=== PATIENT | female | born 1930 | race Caucasian/White ===

== ENCOUNTER 2017-08-31 12:42 | Observation (INO) | payer MEDICARE ==
[~2017-08-31] VITALS: Ht 162.6 cm; Wt 50.0 kg
[2017-08-31 12:43] VITALS: BP 152/71; PULSE 98; RESP 14; TEMP 97.8; O2SAT 97
[2017-08-31 12:53] VITALS: BP 178/80; PULSE 92; RESP 18; TEMP 97.8; O2SAT 100
[2017-08-31] MEDS ORDERED: LEVO.075 PO (12:58)
[2017-08-31] MEDS ORDERED: ASPIRIN 81 MG CHEW TAB CHEW ONE (13:00)
[2017-08-31] MEDS ORDERED: SODIUM CHLORIDE 0.9% FLUSH 10 ML FLUSH IVF PRN (13:00)
[2017-08-31] MEDS: NITROGLYCERIN 0.4 MG SL 25 TABS/BTL SL SCH ×2 (13:06→13:44)
[2017-08-31 13:07] VITALS: RESP 18; O2SAT 97
[2017-08-31 13:09] LABS: AUTOMATED NEUTROPHIL # 3.5 TH/MM3 (1.8-7.7); BASOPHIL % 0.4 % (0.0-2.0); EOSINOPHIL # 0.3 TH/MM3 (0-0.4); EOSINOPHIL % 4.2 % (0.0-4.0); HEMATOCRIT 41.2 % (35.0-46.0); HEMOGLOBIN 14.2 GM/DL (11.6-15.3); LYMPHOCYTE # 3.2 TH/MM3 (1.0-4.8); MEAN CELL VOLUME 90.7 FL (80.0-100.0); MEAN CORPUSCULAR HEMOGLOBIN 31.2 PG (27.0-34.0); MEAN CORPUSCULAR HGB CONC 34.4 % (32.0-36.0); MEAN PLATELET VOLUME 8.5 FL (7.0-11.0); MONO % 7.3 % (0.0-8.0); MONOCYTE # 0.6 TH/MM3 (0-0.9); NEUT % 46.1 % (16.0-70.0); PLATELET COUNT 172 TH/MM3 (150-450); RED BLOOD COUNT 4.55 MIL/MM3 (4.00-5.30); WHITE BLOOD COUNT 7.6 TH/MM3 (4.0-11.0)
[2017-08-31 13:17] LABS: PROTHROMBIN TIME - PATIENT 10.5 SEC (9.8-11.6)
--- NOTE | 2017-08-31 13:20 | PD ---
HPI Chief Complaint: Chest Pain Time Seen by Provider: 12:47 Travel History International Travel<30 days: No Contact w/Intl Traveler<30days: No Traveled to known affect area: No History of Present Illness HPI Patient is an 87-year-old female presents with a sensation of chest tightness in the center of her chest without radiation for the past few days. The patient went to her primary care physician's today because she started feeling like her breathing was becoming more labored. Denies any nausea or vomiting, states is never happened to her before, no stress test in the past no history of heart problems. Patient states that she takes thyroid medication and aspirin as well as the only medicine she states not had an aspirin today. Still with chest tightness her physician advised her to come to the emergency department testing. States symptoms are moderate, associated with shortness of breath, no alleviating or exacerbating factors, location is center of her chest. PFSH Past Medical History Thyroid Disease: Yes Influenza Vaccination: No ?: Not Social History Alcohol Use: Yes (very rarely) Tobacco Use: No Substance Use: No Allergies-Medications (Allergen,Severity, Reaction): Coded Allergies: No Known Allergies (Unverified , 08/31/17) Reported Meds & Prescriptions Reported Meds & Active Scripts Active Reported Synthroid (Levothyroxine Sodium) 75 Mcg Tab 75 Mcg PO DAILY Review of Systems Except as stated in HPI: all other systems reviewed are Neg Physical Exam Narrative GENERAL: Well-developed, well-nourished, quite pleasant in no obvious distress. SKIN: Focused skin assessment warm/dry. HEAD: Atraumatic. Normocephalic. EYES: Pupils equal and round. No scleral icterus. No injection or drainage. ENT: No nasal bleeding or discharge. Mucous membranes pink and moist. NECK: Trachea midline. No JVD. CARDIOVASCULAR: Regular rate and rhythm. No murmur appreciated. 2+ bilateral equal pulses in all 4 extremities. RESPIRATORY: No accessory muscle use. Clear to auscultation. Breath sounds equal bilaterally. GASTROINTESTINAL: Abdomen soft, non-tender, nondistended. Hepatic and splenic margins not palpable. MUSCULOSKELETAL: No obvious deformities. No clubbing. No cyanosis. No edema. NEUROLOGICAL: Awake and alert. No obvious cranial nerve deficits. Motor grossly within normal limits. Normal speech. PSYCHIATRIC: Appropriate mood and affect; insight and judgment normal. Data Data Last Documented VS Vital Signs Date Time Temp Pulse Resp B/P (MAP) Pulse Ox O2 Delivery O2 Flow Rate FiO2 08/31/17 13:44 76 18 132/61 (84) 97 Room Air 08/31/17 12:53 97.8 Orders Orders Complete Blood Count With Diff (08/31/17 12:56) Comprehensive Metabolic Panel (08/31/17 12:56) Magnesium (Mg) (08/31/17 12:56) Prothrombin Time / Inr (Pt) (08/31/17 12:56) Act Partial Throm Time (Ptt) (08/31/17 12:56) Troponin I (08/31/17 12:56) Lipase (08/31/17 12:56) Chest, Single Ap (08/31/17 12:56) Ecg Monitoring (08/31/17 12:56) Iv Access Insert/Monitor (08/31/17 12:56) Oximetry (08/31/17 12:56) Oxygen Administration (08/31/17 12:56) Sodium Chloride 0.9% Flush (Ns Flush) (08/31/17 13:00) Nitroglycerin Sl (Nitrostat Sl) (08/31/17 13:00) Aspirin Chew (Aspirin Chew) (08/31/17 13:00) Thyroid Stimulating Hormone (08/31/17 12:59) Treadmill Test (08/31/17 ) Place In Observation (08/31/17 14:36) Activity Bed Rest With Brp (08/31/17 14:36) Vital Signs (Adult) Q4H (08/31/17 14:36) Cardiac Rhythm .As Directed (08/31/17 14:36) Notify Dr: Other .PRN (08/31/17 14:36) Notify Parameters (08/31/17 14:36) Resp Oxygen Emory C Titrat 1-4 L (08/31/17 14:36) Resp Pulse Oximetry (08/31/17 14:36) ^ Saline Lock (08/31/17 14:36) ^ Obtain (08/31/17 14:36) Acetaminophen (Tylenol) (08/31/17 15:00) Acetamin-Hydrocod 325-7.5 Mg ([place] 7.5 (08/31/17 15:00) Ondansetron Inj (Zofran Inj) (08/31/17 15:00) Vte Prophylaxis Not Indicated (08/31/17 14:36) Admit Order (Ed Use Only) (08/31/17 ) Labs Laboratory Tests Test 08/31/17 12:59 White Blood Count 7.6 TH/MM3 Red Blood Count 4.55 MIL/MM3 Hemoglobin 14.2 GM/DL Hematocrit 41.2 % Mean Corpuscular Volume 90.7 FL Mean Corpuscular Hemoglobin 31.2 PG Mean Corpuscular Hemoglobin Concent 34.4 % Red Cell Distribution Width 14.0 % Platelet Count 172 TH/MM3 Mean Platelet Volume 8.5 FL Neutrophils (%) (Auto) 46.1 % Lymphocytes (%) (Auto) 42.0 % Monocytes (%) (Auto) 7.3 % Eosinophils (%) (Auto) 4.2 % Basophils (%) (Auto) 0.4 % Neutrophils # (Auto) 3.5 TH/MM3 Lymphocytes # (Auto) 3.2 TH/MM3 Monocytes # (Auto) 0.6 TH/MM3 Eosinophils # (Auto) 0.3 TH/MM3 Basophils # (Auto) 0.0 TH/MM3 CBC Comment DIFF FINAL Differential Comment Prothrombin Time 10.5 SEC Prothromb Time International Ratio 1.0 RATIO Activated Partial Thromboplast Time 26.3 SEC Blood Urea Nitrogen 22 MG/DL Creatinine 0.96 MG/DL Random Glucose 114 MG/DL Total Protein 8.1 GM/DL Albumin 4.2 GM/DL Calcium Level 9.3 MG/DL Magnesium Level 2.2 MG/DL Alkaline Phosphatase 44 U/L Aspartate Amino Transf (AST/SGOT) 29 U/L Alanine Aminotransferase (ALT/SGPT) 27 U/L Total Bilirubin 0.5 MG/DL Sodium Level 138 MEQ/L Potassium Level 4.0 MEQ/L Chloride Level 103 MEQ/L Carbon Dioxide Level 27.3 MEQ/L Anion Gap 8 MEQ/L Estimat Glomerular Filtration Rate 55 ML/MIN Troponin I LESS THAN 0.02 NG/ML Lipase 140 U/L Thyroid Stimulating Hormone 3rd Gen 1.340 uIU/ML MDM Medical Decision Making Medical Screen Exam Complete: Yes Emergency Medical Condition: Yes Differential Diagnosis ACS, AMI, GERD, chest wall pain. Narrative Course Patient roomed emergency department, appears comfortable, nitroglycerin and aspirin were given to the patient, initial workup EKG troponin basic labs chest x-ray were negative, the patient was discussed with chest pain center staff will plan distress for this afternoon. I think this is appropriate for her and this was my recommendation to her and she is agreeable. Diagnosis Primary Impression: Chest pain Qualified Codes: R07.9 - Chest pain, unspecified Admitting Information Admitting Physician Requests: Observation Condition: Stable Jairo Baxter MD Aug 31, 2017 13:20
[2017-08-31 13:24] LABS: ALBUMIN 4.2 GM/DL (3.4-5.0); AST (GOT) 29 U/L (15-37); BICARBONATE 27.3 MEQ/L (21.0-32.0); BLOOD UREA NITROGEN 22 MG/DL (7-18); CALCIUM 9.3 MG/DL (8.5-10.1); CHLORIDE 103 MEQ/L (98-107); CREATININE 0.96 MG/DL (0.50-1.00); GLOMERULAR FILTRATION RATE 55 ML/MIN (>89); GLUCOSE,RANDOM 114 MG/DL (74-106); LIPASE 140 U/L (73-393); MAGNESIUM 2.2 MG/DL (1.5-2.5); SODIUM (NA) 138 MEQ/L (136-145)
[2017-08-31 13:32] LABS: ALKALINE PHOSPHATASE 44 U/L (45-117); ALT (GPT) 27 U/L (10-53); TOTAL BILIRUBIN ADULT 0.5 MG/DL (0.2-1.0); TOTAL PROTEIN 8.1 GM/DL (6.4-8.2); TROPONIN I LESS THAN 0.02 NG/ML (0.02-0.05)
[2017-08-31 13:44] VITALS: BP 132/61; PULSE 76; RESP 18; O2SAT 97
--- NOTE | 2017-08-31 13:44 | RADRPT ---
EXAM DATE/TIME: 08/31/2017 13:31 [facility] COMPARISON: No previous studies available for comparison. INDICATIONS : Shortness of breath. MEDICAL HISTORY : None. SURGICAL HISTORY : None. ENCOUNTER: Initial ACUITY: 1 day PAIN SCORE: 0/10 LOCATION: chest FINDINGS: A single view of the chest demonstrates the lungs to be symmetrically aerated without evidence of mas s, infiltrate or effusion. The cardiomediastinal contours are unremarkable. Osseous structures are intact. CONCLUSION: No acute disease. Stephen Montenegro MD FACR on August 31, 2017 at 13:41 Board Certified Radiologist. This report was verified electronically.
[2017-08-31] MEDS ORDERED: ONDANSETRON HCL 4 MG/2 ML VIAL IV PUSH PRN (15:00)
[2017-08-31] MEDS ORDERED: ACETAMINOPHEN 500 MG CPLT PO PRN (15:00)
[2017-08-31] MEDS ORDERED: ACETAMINOPHEN/HYDROcodone 325 MG/7.5 MG TAB PO PRN (15:00)
--- NOTE | 2017-08-31 15:47 | HHI.DCPOC ---
Discharge Care Plan Diagnosis: (1) Chest pain (2) Post-menopause bleeding Goals to Promote Your Health YOU NEED TO DISCUSS THE EPISODE OF POST MENOPAUSAL VAGINAL BLEEDING THAT YOU HAD A COUPLE DAYS AGO. * To prevent worsening of your condition and complications * To maintain your health at the optimal level Directions to Meet Your Goals Take your medications as prescribed Follow your dietary instruction Follow activity as directed Keep your appointments as scheduled Take your immunizations and boosters as scheduled If your symptoms worsen call your PCP, if no PCP go to Urgent Care Center or Emergency Room Smoking is Dangerous to Your Health. Avoid second hand smoke Call the 24-hour hour crisis hotline for domestic abuse at Wale Chou Aug 31, 2017 15:47
--- NOTE | 2017-08-31 15:58 | HHI.HP ---
[facility] Primary Care Physician Frandy Paniagua MD Chief Complaint Chest pain History of Present Illness This is an 87-year-old female with history of hypothyroidism that presents to ED via private vehicle with her family with a complaint of 2 weeks of intermittent central chest discomfort. She describes a pressure. Usually it is when she first wakes up. However it can also happen during a day. Usually last up to a couple hours. Found nothing in particular to bring on the discomforts. Maybe a little bit of shortness of breath. Rates the discomfort is mild. No nausea or diaphoresis. Cannot recall prior cardiac workup. Denies hypertension, hyperlipidemia, diabetes. Lifetime nonsmoker. No family history of CAD. Also patient had stated that something unusual had occurred a couple days ago. States that she had vaginal bleeding. States she has been postmenopausal since age 56. Denies any abdominal pain. Only noticed the one episode. Review of Systems General: Patient denies fevers, chills recent, and recent travel HEENT: Patient denies headache, sore throat, difficulty swallowing. Cardiovascular: Has the chest discomfort as mentioned above. Denies sensation of heart beating rapidly or irregularly. No syncope. Respiratory: Denies shortness of breath or inspirational chest discomfort. Denies coughing wheezing or hemoptysis. GI: Patient denies nausea, vomiting, diarrhea, abdominal pain, bloody stools. Musculoskeletal: Patient denies joint pain or edema. Denies calf pain or edema. Neurovascular: Patient denies numbness, tingling, weakness in extremities. Denies headache. Endocrine: Denies polyuria and polydipsia. Hematologic: Denies easy bruising. GUN TESTER: Patient complained of one episode of bright red vaginal bleeding 2 days ago. States she had not had vaginal bleeding in over 30 years. Skin: Denies rash or itching. Past Family Social History Allergies: Coded Allergies: No Known Allergies (Unverified , 08/31/17) Past Medical History Hypothyroidism. Denies hypertension, hyperlipidemia, diabetes, and known CAD. Past Surgical History Noncontributory. Reported Medications Reported Meds & Active Scripts Active Reported Synthroid (Levothyroxine Sodium) 75 Mcg Tab 75 Mcg PO DAILY Active Ordered Medications Current Medications Medications (Trade) Dose Ordered Sig/Naya Route Start Time Stop Time Status Last Admin (NS Flush) 2 ml UNSCH PRN IVF 08/31/17 13:00 (Tylenol) 500 mg Q4H PRN PO 08/31/17 15:00 ([place] 7.5-325 Mg) 1 tab Q4H PRN PO 08/31/17 15:00 (Zofran Inj) 4 mg Q6H PRN IV PUSH 08/31/17 15:00 Family History Denies family history of CAD. Social History Lifetime nonsmoker. Denies illicit drugs. Rarely has alcohol. Physical Exam Vital Signs Vital Signs Date Time Temp Pulse Resp B/P (MAP) Pulse Ox O2 Delivery O2 Flow Rate FiO2 08/31/17 13:44 76 18 132/61 (84) 97 Room Air 08/31/17 13:07 97 Room Air 08/31/17 13:07 18 97 Room Air 08/31/17 12:53 97.8 92 18 178/80 (112) 100 Room Air 08/31/17 12:53 94 18 100 08/31/17 12:43 97.8 98 14 152/71 (98) 97 Physical Exam GENERAL: This is a well-nourished, well-developed patient, in no apparent distress. Patient speaks in clear complete sentences. Patient is pleasant. HEENT: Head is atraumatic and normocephalic. Neck is supple without lymphadenopathy and trachea is midline. No JVD or carotid bruits. CARDIOVASCULAR: Regular rate and rhythm without murmurs, gallops, or rubs. RESPIRATORY: Clear to auscultation. Breath sounds equal bilaterally. No wheezes , rales, or rhonchi. Chest wall is nontender. No use of accessory muscles. GASTROINTESTINAL: Abdomen is nontender, nondistended. Abdomen soft. No obvious pulsatile mass or bruit. No CVA tenderness. Strong femoral pulses bilaterally. Normal bowel sounds in all quadrants. MUSCULOSKELETAL: Patient is moving upper and lower extremities freely. No calf tenderness or edema, no Homans sign. Strong pulses in upper and lower extremities. NEUROLOGICAL: Patient is alert and oriented. Cranial nerves 2-12 are grossly intact. No focal deficits and speech is clear. SKIN: No rash and turgor is normal. Laboratory Laboratory Tests Test 08/31/17 12:59 White Blood Count 7.6 Red Blood Count 4.55 Hemoglobin 14.2 Hematocrit 41.2 Mean Corpuscular Volume 90.7 Mean Corpuscular Hemoglobin 31.2 Mean Corpuscular Hemoglobin Concent 34.4 Red Cell Distribution Width 14.0 Platelet Count 172 Mean Platelet Volume 8.5 Neutrophils (%) (Auto) 46.1 Lymphocytes (%) (Auto) 42.0 Monocytes (%) (Auto) 7.3 Eosinophils (%) (Auto) 4.2 Basophils (%) (Auto) 0.4 Neutrophils # (Auto) 3.5 Lymphocytes # (Auto) 3.2 Monocytes # (Auto) 0.6 Eosinophils # (Auto) 0.3 Basophils # (Auto) 0.0 CBC Comment DIFF FINAL Differential Comment Prothrombin Time 10.5 Prothromb Time International Ratio 1.0 Activated Partial Thromboplast Time 26.3 Blood Urea Nitrogen 22 Creatinine 0.96 Random Glucose 114 Total Protein 8.1 Albumin 4.2 Calcium Level 9.3 Magnesium Level 2.2 Alkaline Phosphatase 44 Aspartate Amino Transf (AST/SGOT) 29 Alanine Aminotransferase (ALT/SGPT) 27 Total Bilirubin 0.5 Sodium Level 138 Potassium Level 4.0 Chloride Level 103 Carbon Dioxide Level 27.3 Anion Gap 8 Estimat Glomerular Filtration Rate 55 Troponin I LESS THAN 0.02 Lipase 140 Thyroid Stimulating Hormone 3rd Gen 1.340 Result Diagram: 08/31/17 1259 08/31/17 1259 Imaging Last 48 hours Impressions Chest X-Ray 08/31/17 1256 Signed Impressions: Service Date/Time: Thursday, August 31, 2017 13:31 - CONCLUSION: No acute disease. Stephen Montenegro MD FACR Course Initial EKG has sinus rhythm without significant ST segment depressions or elevations. Caprini VTE Risk Assessment Caprini VTE Risk Assessment: Mod/High Risk (score >= 2) Caprini Risk Assessment Model Point Value = 1 Point Value = 2 Point Value = 3 Point Value = 5 Age 41-60 Minor surgery BMI > 25 kg/m2 Swollen legs Varicose veins or History of unexplained or recurrent spontaneous Oral contraceptives or hormone replacement Sepsis (< 1 month) Serious lung disease, including pneumonia (< 1 month) Abnormal pulmonary function Acute myocardial infarction Congestive heart failure (< 1 month) History of inflammatory bowel disease Medical patient at bed rest Age 61-74 Arthroscopic surgery Major open surgery (> 45 min) Laparoscopic surgery (> 45 min) Malignancy Confined to bed (> 72 hours) Immobilizing plaster cast Central venous access Age >= 75 History of VTE Family history of VTE Factor V Leiden Prothrombin [id number] Lupus anticoagulant Anticardiolipin antibodies Elevated serum homocysteine Heparin-induced thrombocytopenia Other congenital or acquired thrombophilia Stroke (< 1 month) Elective arthroplasty Hip, pelvis, or leg fracture Acute spinal cord injury (< 1 month) Prophylaxis Regimen Total Risk Factor Score Risk Level Prophylaxis Regimen 0-1 Low Early ambulation 2 Moderate Order ONE of the following: *Sequential Compression Device (SCD) *Heparin 5000 units SQ BID 3-4 Higher Order ONE of the following medications: *Heparin 5000 units SQ TID *Enoxaparin/Lovenox 40 mg SQ daily (WT < 150 kg, CrCl > 30 mL/min) *Enoxaparin/Lovenox 30 mg SQ daily (WT < 150 kg, CrCl > 10-29 mL/min) *Enoxaparin/Lovenox 30 mg SQ BID (WT < 150 kg, CrCl > 30 mL/min) AND/OR *Sequential Compression Device (SCD) 5 or more Highest Order ONE of the following medications: *Heparin 5000 units SQ TID (Preferred with Epidurals) *Enoxaparin/Lovenox 40 mg SQ daily (WT < 150 kg, CrCl > 30 mL/min) *Enoxaparin/Lovenox 30 mg SQ daily (WT < 150 kg, CrCl > 10-29 mL/min) *Enoxaparin/Lovenox 30 mg SQ BID (WT < 150 kg, CrCl > 30 mL/min) AND *Sequential Compression Device (SCD) Assessment and Plan Assessment and Plan * Chest pain: Patient had first set of cardiac enzymes and EKGs for ruling out purposes. She was seen by Dr. Valentin of cardiology and the chest pain center and found that her symptoms appear to be atypical. She will have a Real protocol ETT and if that is nonischemic will be discharged home with instructions to follow-up with PCP. Return to ED for interval issues. * Postmenopausal vaginal bleeding: Patient has been advised of importance of follow-up to determine why she had postmenopausal vaginal bleeding. She should discuss this with her physician at next appointment and will likely get referral to a motion graphics artist. Patient is stable this time. She is agreeable to this plan. Wale Chou Aug 31, 2017 15:58
--- NOTE | 2017-09-01 10:46 | TR ---
Date Performed: 08/31/2017 Time Performed: 15:08:28 DOCTOR: Negro Valentin DRUG LIST: CLINICAL HISTORY: REASON FOR TEST: CARDIAC REASON FOR ENDING: OBSERVATION: CONCLUSION: ENA PROTOCOL. NO CP OR SOB. TEST STOPPED AFTER EXCEEDING GOAL HR SECONDARY TO LEG FATIGUE.Maximum VF=180 % Max HR Muuhlwhy=938.0% Maximum RR=760/54 Total Exercise Time=2:02 COMMENTS: Conclusion: Normal treadmill exercise. No evidence of ischemia.
--- NOTE | 2017-09-01 14:35 | EKG ---
Date Performed: 08/31/2017 Time Performed: 12:50:31 PTAGE: 87 years EKG: Sinus rhythm WITH OCCASIONAL SUPRAVENTRICULAR PREMATURE COMPLEXES POSSIBLE RIGHT VENTRICULAR CONDUCTION DELAY Poo r R wave progression ABNORMAL ECG INTERPRETATION BASED ON A DEFAULT AGE OF 40 YEARS NO PREVIOUS TRACING DOCTOR: Negro Valentin Interpretating Date/Time 09/01/2017 14:33:07
== END 2017-08-31 16:28 | disposition home or self-care (01) ==
LOC: NEPC 12:42 → NEDA 14:46
DX: R07.89 Other chest pain (principal); N95.0 Postmenopausal bleeding; R06.02 Shortness of breath; E03.9 Hypothyroidism, unspecified
CPT/HCPCS: 71010; 80053; 83690; 83735; 84443; 84484; 85025; 85610; 85730; 93005; 93017; 99285; G0378